=== PATIENT | female | born 1995 | race Caucasian/White ===

== ENCOUNTER 2025-10-21 03:31 | Observation (INO) ==
[2025-10-21 04:01] LABS: HCT - HEMATOCRIT 38.8 % (37.0-47.0); HGB - HEMOGLOBIN 13.3 g/dL (12.0-16.0); MEAN PLATELET VOLUME 10.5 fL (7.9-10.8); NRBC ABSOLUTE COUNT (AUTO) 0.00 x10^3/uL; NUCLEATED RED BLOOD CELLS AUTO 0.0 /100WBC; PLT - PLATELET COUNT 234 10^3/uL (130-450); RED CELL DISTRIBUTION WIDTH 12.8 % (12.0-15.0)
[2025-10-21 04:13] LABS: GLUCOSE, URINE (UA) Negative (NEGATIVE); HCG UR QUAL NEGATIVE; KETONES,URINE (UA) Trace mg/dL (NEGATIVE); OCCULT BLOOD,URINE Negative (NEGATIVE)
[2025-10-21 04:19] LABS: ALT ALANINE AMINOTRANSFERASE 12.0 IU/L (10-60); AST ASPARTATE AMINOTRANSFERASE 15.0 IU/L (10-42); BUN - BLOOD UREA NITROGEN 12.0 mg/dL (6-20); CARBON DIOXIDE - CO2 26.0 mmol/L (21-32); CREATININE 1.0 mg/dL (0.6-1.3); GFR - MDRD 65.0 (>89)
[2025-10-21] MEDS: HYDROmorphone 0.5 MG/0.5 ML SYRINGE IVP STA (04:36)
[2025-10-21] MEDS: ONDANSETRON 4 MG/2 ML VIAL IVP STA (04:36)
[2025-10-21] MEDS: SODIUM CHLORIDE 0.9% 500 ML IV ONE (04:37)
--- NOTE | 2025-10-21 04:37 | ED Physician Documentation ---
History of Present Illness Stated complaint Stated Complaint: ABD PX Chief complaint Chief Complaint: Abd Pain History obtained from History obtained from: Patient Additonal information Additional information: 29yF with pmh crohns disease p/w feverishness/chills, abdominal diffuse pain, n/v overnight. denies back pain, urinary sx, cough, soa, cp. Meds/Allgy Home Medications Ambulatory Orders Medication Instructions Recorded Confirmed adalimumab 40 mg subcut .bi-weekly 10/0310/21/25 Allergies Allergies Allergy/AdvReac Type Severity Reaction Status Date / Time No Known Drug Allergies Allergy Verified 10/21/25 03:37 PFSH Active Problems All Active Problems (Updated 10/21/25 @ 05:19 by Leydi Parnell MD) Colitis (Acute) SBO (small bowel obstruction) (Acute) Vomiting (Acute) Abdominal pain (Acute) Medical History Medical History (Updated 10/21/25 @ 05:19 by Leydi Parnell MD) Acute Crohn's disease Social History Social History Smoking Status: Unknown if ever smoked Second hand tobacco smoke exposure: No Do you dip or chew tobacco?: No Do you vape?: No Patient requests smoking cessation consult: No Initiate information on smoking cessation: No Level: Assisted Do you feel safe in your home environment?: Yes History of physical, verbal, emotional, or financial abuse?: No Substance Use: cannabis (any form) POLST Patient has POLST: No Exam Exam Vital Signs: Vital Signs x48h Temp Pulse Resp BP Pulse Ox 10/21/25 05:48 72 20 114/67 92 10/21/25 03:33 37.1 C 77 23 112/56 L 100 Constitutional normal general appearance, no apparent distress and average body habitus HENMT normocephalic, head/scalp atraumatic and oropharynx normal Eyes PERRL and EOMs intact bilaterally Neck/C-Spine visual inspection normal Chest inspection of chest normal Respiratory breath sounds equal bilaterally, normal respiratory effort and clear to auscultation bilaterally Cardiovascular normal heart rate noted and regular rhythm noted Gastrointestinal abdomen normal to inspection diffuse discomfort to palpation Results Vitals Vitals: Vital Signs - 24 hr 10/21/25 03:33 10/21/25 04:36 10/21/25 05:48 Temperature 37.1 C Temperature Source Tympanic Pulse Rate 77 72 Respiratory Rate 23 20 Blood Pressure 112/56 L 114/67 O2 Saturation 100 92 O2 Source Room air Room air Pain Intensity 8 8 4 Oxygen O2 Source Room air Labs Labs: Laboratory Tests 10/21/25 10/21/25 02:40 03:56 WBC 12.1 H RBC 4.26 Hgb 13.3 Hct 38.8 MCV 91.1 MCH 31.2 H MCHC 34.3 RDW 12.8 Plt Count 234 MPV 10.5 Neut # (Auto) 10.5 H Lymph # (Auto) 0.8 L [place] # (Auto) 0.6 Eos # (Auto) 0.1 Baso # (Auto) 0.0 Absolute Nucleated RBC 0.00 Nucleated RBC % 0.0 Sodium 135 Potassium 3.8 Chloride 103 Carbon Dioxide 26 Anion Gap 6.0 BUN 12 Creatinine 1.0 Estimated GFR (MDRD) 65 L Glucose 129 H Calcium 9.6 Total Bilirubin 1.4 H AST 15 ALT 12 Alkaline Phosphatase 41 L Total Protein 6.7 Albumin 4.4 Globulin 2.3 Albumin/Globulin Ratio 1.9 Triglycerides 51 Cholesterol 132 LDL Cholesterol, Calc 55 VLDL Cholesterol 10 HDL Cholesterol 67 LDL/HDL Ratio 0.8 Cholesterol/HDL Ratio 2.0 Lipase 12 TSH 0.69 Urine Color Yellow Urine Clarity Slightly Cloudy Urine pH 6.0 Ur Specific [place] 1.020 Urine Protein Negative Urine Glucose (UA) Negative Urine Ketones Trace Urine Occult Blood Negative Urine Nitrite Negative Urine Bilirubin Negative Urine Urobilinogen 0.2 (NORMAL) Ur Leukocyte Esterase Negative Ur Microscopic Review NOT INDICATED Urine Culture Comments NOT INDICATED Urine HCG, Qual NEGATIVE PD Medical Decision Making ED course ED course: 29yF p/w abdominal pain, nausea, fever/chills. labs, ua, hcg, ct ordered. pain and nausea improved with IV dilaudid, IVF, and zofran. plan to f/u results. decision made to admit at 5:15am . Colitis and possible SBO on ct. patient is passing appropriate flatus and pain and nausea are well controlled. she has been placed on maintenance IVF and is NPO for bowel rest. d/w Dr. Fitzpatrick 5:30am for admission and he agreed I can call surgeon Dr Sen at 7am given surgeon shift change. 7am d/w Dr. Sen who recommends consulting patient's [facility]. She states crohns patients who are not on maintenance medications may be good candidates for transfer to facility with GI. she is unsure if humira can be obtained inpatient. Patient takes humira maintenance medication regularly and last dose was yesterday so patient is not due for another dose this week. We discussed whether the admission should be reversed and transfer arranged and Dr. Sen said to first consult GI and follow their recs. I physically went to med surg and spoke with our daytime hospitalist to communicate this. Discharge Plan Discharge Patient Disposition: 64 [facility] DC/Xfer Condition: Fair Clinical Impression: Abdominal pain, Vomiting, SBO (small bowel obstruction), Colitis Interventions: ED Admission Assessment Last Done: 10/21/25 06:11
[2025-10-21] MEDS ORDERED: HYDROmorphone 0.5 MG/0.5 ML SYRINGE IVP PRN (05:18)
[2025-10-21] MEDS ORDERED: IBUPROFEN 400 MG TABLET PO PRN (05:46)
[2025-10-21] MEDS ORDERED: MORPHINE 10 MG/ML VIAL IVP PRN (05:46)
[2025-10-21] MEDS ORDERED: ALBUTEROL 1 PUFF INH PRN (05:46)
[2025-10-21] MEDS ORDERED: ACETAMINOPHEN 325 MG TABLET PO PRN (05:46)
[2025-10-21] MEDS ORDERED: BENZONATATE 100 MG CAPSULE PO PRN (05:46)
[2025-10-21] MEDS ORDERED: BENZOCAINE/MENTHOL LOZENGE MM PRN (05:46)
--- NOTE | 2025-10-21 06:11 | HISTORY & PHYSICAL EXAMINATION ---
Chief Complaint Chief Complaint Chief Complaint: abd pain, nausea, vomiting History of Present Illness History of Present Illness HPI Comment/Other: pt with abd pain + nausea and vomiting that started in last 24 h. no trauma. pt last ate popcorn and had some juice. does not remember when she last had bm. pt is a transgender m to f with male genitalia, and h/o crohn's disease, on humira. h/o sbo about 2 yr ago. no chest pain or sob. no dysuria. no further vomiting in ed but pt still feels nauseated. Review of Systems Status of ROS: 10 or more systems reviewed and unremarkable except as noted in history and below PFSH Active Problems All Active Problems (Updated 10/21/25 @ 05:19 by Leydi Parnell MD) Colitis (Acute) SBO (small bowel obstruction) (Acute) Vomiting (Acute) Abdominal pain (Acute) Medical History Medical History (Updated 10/21/25 @ 05:19 by Leydi Parnell MD) Acute Crohn's disease Social History Social History Smoking Status: Unknown if ever smoked Do you feel safe in your home environment?: Yes History of physical, verbal, emotional, or financial abuse?: No POLST Patient has POLST: No Meds/Allgy Home Medications Ambulatory Orders Medication Instructions Recorded Confirmed adalimumab 40 mg subcut .bi-weekly 10/0310/21/25 Allergies Allergies Allergy/AdvReac Type Severity Reaction Status Date / Time No Known Drug Allergies Allergy Verified 10/21/25 03:37 Exam Exam Vital Signs: Vital Signs x48h Temp Pulse Resp BP Pulse Ox 10/21/25 05:48 72 20 114/67 92 10/21/25 03:33 37.1 C 77 23 112/56 L 100 Constitutional normal general appearance and no apparent distress HENMT normocephalic and head/scalp atraumatic Eyes EOMs intact bilaterally Neck/C-Spine visual inspection normal Respiratory no retractions and no use of accessory muscles Cardiovascular details per ed charting Gastrointestinal nondistended and no ascites Extremities normal to inspection Neurology speech normal Psychiatry oriented x3, thought process normal and cooperative Conclusion/Plan Problem List (1) SBO (small bowel obstruction): (2) Colitis: Lab Results 10/21/25 03:56 10/21/25 03:56 Other Other Results/Comments: pt with - - sbo with h/o same about 2 yr ago ed to consult gen surg no ngt at this time crohn's disease hx - colitis in setting of above h/o crohn's --> high risk of gi infections zosyn, ivf, stool studies - acute abdominal pain in setting of above pt prefers toradol for pain control ivf, supportive mgmt - hyperglycemia glucose 120s exacerbated d/t above no reported h/o t2dm check a1c, tsh, lipids - cannabis usage increased risk of intractable n/v - immuncompromised status in setting of crohn's on humira high risk of gi infections
[2025-10-21 06:12] LABS: CHOL/HDL RATIO 2.0 (<4.4); LDL/HDL RATIO 0.8 (<4.4); VLDL CHOLESTEROL 10 mg/dL
[2025-10-21] MEDS: SODIUM CHLORIDE 0.9% 1,000 ML IV STA (06:22)
[2025-10-21] MEDS: PIPERACILLIN/TAZOBACTAM 3.375 GM in SODIUM CHLORIDE 0.9% MINIBAG 100 ML IV SCH (06:23)
--- NOTE | 2025-10-21 06:27 | CT Report ---
PROCEDURE: CT Abdomen/Pelvis W INDICATIONS: diffuse abdominal pain CONTRAST: [id number] TECHNIQUE: After the administration of intravenous contrast, a CT scan of the abdomen and pelvis was performed. Images were recorded and evaluated at appropriate window settings. Reformats: coronal and sagittal. For radiation dose reduction, the following was used: automated exposure control, adjustment of mA and/or kV according to patient size. COMPARISON: None. FINDINGS: Image quality: Diagnostic Lower chest: Unremarkable lung bases. Liver: Unremarkable Gallbladder and biliary system: Unremarkable, nondilated Pancreas: No ductal dilation Spleen: Prominent at 13 cm Adrenals: No discrete nodules Kidneys: No solid renal mass. No hydronephrosis. Vessels and lymph nodes: The main portal vein is patent. No abdominal aortic aneurysm. There are no enlarged lymph nodes by size criteria. Bowel and peritoneum: Bowel obstruction is seen, with fecalized material in the terminal and distal ileum. Distended mid and distal ileal loops are present, measuring up to 3.6 cm in diameter. No drainable abscess or ascites. Wall thickening is seen in the ascending colon. There are prominent ileocolic lymph nodes. Nondilated appendix. Body wall: Small amount of gas in the anterior body wall, possibly from injection. Pelvis: Under distended urinary bladder. Unremarkable reproductive organs on limited CT evaluation Bones: No aggressive appearing osseous finding. IMPRESSION: Small bowel obstruction, with dilated mid and distal ileum. Transition point is at the ileocecal valve. Wall thickening is seen in the ascending colon, possibly colitis. Underlying lesion remains possible. Prominent ileocolic lymph nodes are present. Consider colonoscopy and surgical correlation. Other findings above. No changes from the preliminary report. Reviewed by: Anthony Mccann MD on 10/21/2025 6:24 AM [facility] Approved by: Anthony Mccann MD on 10/21/2025 6:24 AM PST Station ID: [id number]
[2025-10-21] MEDS: KETOROLAC 15 MG/ML VIAL IVP PRN (06:36)
[2025-10-21] MEDS ORDERED: ALBUTEROL NEB 2.5 MG/3 ML INH PRN (07:14)
[2025-10-21] MEDS: LACTOBACILLUS RHAMNOSUS GG CAPSULE PO SCH (09:45)
[2025-10-21] MEDS: PANTOPRAZOLE 40 MG VIAL IVP SCH (09:45)
[2025-10-21] MEDS: LACTATED RINGERS 1,000 ML IV SCH (10:12)
[2025-10-21 10:45] LABS: ESTIMATED AVERAGE GLUCOSE 100 mg/dL (70-100); HEMOGLOBIN A1c% 5.1 % (4.27-6.07)
[2025-10-21] MEDS: oxyCODONE 5 MG TABLET PO PRN (11:34)
--- NOTE | 2025-10-21 11:38 | PHARMACY PROGRESS NOTE ---
Best Possible Medication History Admit Date and Time: 10/21/25 [id number] Home Medications Medication Instructions Recorded Confirmed Type adalimumab 40 mg subcut .bi-weekly 10/0310/21/25 History emtricitabine 200 mg-tenofovir 1 tab PO DAILY 10/21/25 10/21/25 History disoproxil fumarate 300 mg tablet spironolactone 100 mg tablet 100 mg PO DAILY 10/21/25 10/21/25 History Processed by: Pharmacy Medications reviewed in ED?: Yes Medication History completed: Yes Patient Interview: Completed Secondary Source(s): Insurance records [facility] Statement: As the person ultimately responsible for medication therapy, providers are able to order a medication from an existing home medication list in [facility] via the "Reconcile Routine" prior to Confirmation of that medication by senior technical support engineer. Such practice is discouraged except when the physician, in their clinical judgment, deems that a medical need exists for a medication without regard to previous use.
[2025-10-21] MEDS: ONDANSETRON 4 MG/2 ML VIAL IVP PRN (11:48)
[2025-10-21] MEDS ORDERED: MORPHINE 4 MG/ML VIAL IVP PRN (13:20)
[2025-10-21] MEDS: METOCLOPRAMIDE 10 MG/2 ML VIAL IVP PRN (14:01)
[2025-10-21] MEDS: methylPREDNISolone SUCCINATE 40 MG/ML VIAL IVP SCH (14:05)
[2025-10-21 16:00] VITALS: TEMP 98.1
--- NOTE | 2025-10-21 17:53 | MISCELLANEOUS PROVIDER NOTE ---
Miscellaneous Provider Note - Note: Patient is excepted in transfer by Belkis Taveras NP hospitalist at [facility] in [place]. Awaiting available bed
--- NOTE | 2025-10-21 19:12 | XRAY Report ---
PROCEDURE: XR Abdomen 1 V INDICATIONS: NG placement TECHNIQUE: 1 view of the abdomen was acquired. COMPARISON: None. FINDINGS: Surgical changes and devices: Nasogastric tube in the stomach Bowel: No pneumoperitoneum. The bowel gas pattern is normal. Stool load within normal limits. Soft tissues: No masses; visualized solid organ contours appear normal in size. No suspicious abdominal calcifications. Bones: No suspicious bony abnormalities. IMPRESSION: Nasogastric tube in the stomach Reviewed by: Jameson Ibrahim MD on 10/21/2025 6:09 PM [facility] [place] Approved by: Jameson Ibrahim MD on 10/21/2025 6:09 PM [facility] [place] Station ID: [id number]
[2025-10-21 20:31] VITALS: BP 123/64; O2SAT 96
--- NOTE | 2025-10-21 21:23 | Discharge Summary ---
Discharge Summary Admit Date: 10/21/25 Discharge Date: 10/21/25 Discharging Provider: Larry Penaloza Code Status: Attempt Resuscitation DIAGNOSES Discharge Diagnoses with Status of Each Condition: Patient is being transferred for higher level of care to [facility]. All problems are still active SBO Colitis Acute abdominal pain Crohn's disease Transgender Immunocompromise patient HPI History of Present Illness: pt with abd pain + nausea and vomiting that started in last 24 h. no trauma. pt last ate popcorn and had some juice. does not remember when she last had bm. pt is a transgender m to f with male genitalia, and h/o crohn's disease, on humira. h/o sbo about 2 yr ago. no chest pain or sob. no dysuria. no further vomiting in ed but pt still feels nauseated. HOSPITAL COURSE Hospital Course: Shortly after her admission, general surgery reported that we should reach out to her environmental services aide. We spoke to her GI doc, Dr. Ricardo in [place], who recommended transfer for higher level care. We reached out to several facilities, and she was eventually excepted by [facility] in [place] and she is being transferred there by ambulance. Treatments in this hospitalization included NG tube to low intermittent suction, Zosyn, Solu-Medrol ALLERGIES Allergies Allergy/AdvReac Type Severity Reaction Status Date / Time No Known Drug Allergies Allergy Verified 10/21/25 03:37 MEDICATIONS Ambulatory Orders Medication Instructions Recorded Confirmed adalimumab 40 mg subcut .bi-weekly 10/0310/21/25 emtricitabine 200 mg-tenofovir 1 tab PO DAILY 10/21/25 10/21/25 disoproxil fumarate 300 mg tablet spironolactone 100 mg tablet 100 mg PO DAILY 10/21/25 10/21/25 PHYSICAL EXAM AT DISCHARGE Vital Signs: Vital Signs x48h Temp Pulse Resp BP Pulse Ox 10/21/25 20:05 98.1 F 81 18 123/64 96 10/21/25 15:23 98.1 F 69 18 119/65 98 General Appearance: positive No acute distress and Alert Eyes Bilateral: positive Normal inspection ENT: positive ENT inspection nml Neck: positive Nml inspection Respiratory: positive Chest non-tender and No respiratory distress Cardiovascular: positive Regular rate & rhythm Abdomen: positive Tenderness and Other (Active bowel sounds, not passing flatus) Skin: positive Color nml Extremities: positive Non-tender Neurologic/Psychiatric: positive Oriented x3 LABS 10/21/25 03:56 10/21/25 03:56 FOLLOW UP Follow Up: Would likely benefit from follow-up with GI and PCP after this hospitalization TIME SPENT Time Spent in Discharge (Minutes): 45 Discharge Plan Discharge Patient Disposition: 02 Transfer Acute Care Hosp Condition: Fair Prescriptions: No Action adalimumab [Humira Pen] 40 mg subcut .bi-weekly Patient Comments: On . Last taken 10/20/25 spironolactone 100 mg tablet 100 mg PO DAILY emtricitabine-tenofovir (TDF) 200-300 mg tablet 1 tab PO DAILY Patient Comments: TAKE 1 TABLET BY MOUTH DAILY Activity Restrictions/Additional Instructions: You were seen in the emergency department for medical evaluation. Please follow-up with your primary care provider and return to the emergency department if you have any new or worsening symptoms or other concerns. Interventions: Belongings Inventory Last Done: 10/21/25 12:10 Print Language: Maori Patient Instructions: Abdominal Pain Stand Alone Forms: PCP List, SBIRT Report called to and time (if no answer, doc. time of each call attempted): Amy barbosa RN [facility] Vitals documented within 30 minutes of discharge?: Yes
[2025-10-21] MEDS ORDERED: methylPREDNISolone SUCCINATE 40 MG/ML VIAL IVP SCH (22:00)
== END 2025-10-21 21:23 | disposition short-term general hospital (02) ==
LOC: MS2 03:31 → ED 03:31 → MS2 06:11
PROVIDERS: ADMIT Student in an Organized Health Care Education/Training Program; ATTEND Student in an Organized Health Care Education/Training Program
DX: D84.821 Immunodeficiency due to drugs; F64.0 Transsexualism; K56.609 Unspecified intestinal obstruction, unspecified as to partial versus complete obstruction; R73.9 Hyperglycemia, unspecified; K50.90 Crohn's disease, unspecified, without complications; Z79.620 Long term (current) use of immunosuppressive biologic; K52.9 Noninfective gastroenteritis and colitis, unspecified